=== PATIENT | male | born 1975 | race Caucasian/White ===

== ENCOUNTER 2020-10-27 15:40 | Emergency (ER) | payer SELFPAY ==
--- NOTE | 2020-10-27 16:30 | EDM.PDOC ---
ED HPI GENERAL MEDICAL PROBLEM - General Chief Complaint: Upper Extremity Injury/Pain Stated Complaint: BACK/RIGHT SHOULDER PAIN Time Seen by Provider: 10/27/20 16:24 Source of Information: Reports: Patient History Limitations: Reports: No Limitations - History of Present Illness INITIAL COMMENTS - FREE TEXT/NARRATIVE: 45-year-old male presents to the ED with severe right-sided cervical neck pain radiating all the way down his right upper extremity to his second and third fingers i.e. in the C6 dermatome. He states he awoke with this type of pain 2 days ago and it is progressively worsened. He states pain was rating down his arm since that time and is constant. He feels like his elbow is on fire. He has not developed any signs of shingles at this time. States he had shingles once in the past on his head. Patient states he had a fall from the back of a semitrailer about 12 days ago and banged up his right hip and lower back which took a few days to get better. He felt he charlene his neck at that time but never had any significant pain until the last 2 days. Even driving the car and bumps in the highway will exacerbate the pain in his right upper extremity. Motrin and Tylenol have made no dent in the severity of the pain which he rates 10 out of 10. Onset: Sudden Onset Date: 10/26/20 (Up with pain in his cervical spine on the right side rating down his right arm yesterday morning) Duration: Hour(s):, Constant, Getting Worse Location: Reports: Neck, Upper Extremity, Right (The right upper extremity pain with a burning paresthesia pain rating from his neck all the way down to his third and second fingers tips.) Quality: Reports: Ache, Burning Severity: Severe Improves with: Reports: None (10 out of 10) Worsens with: Reports: None Context: Denies: Activity, Exercise, Lifting, Sick Contact, Trauma, Other Associated Symptoms: Denies: No Other Symptoms, Confusion, Cough, cough w sputum, Diaphoresis, Fever/Chills, Headaches, Loss of Appetite, Malaise, Nausea/Vomiting, Rash (No evidence of shingles.), Shortness of Breath, Syncope 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, NSAIDS Right Shoulder Pain Score (Numeric/FACES): 10 - Related Data Allergies Allergy/AdvReac Type Severity Reaction Status Date / Time bee venom protein (honey bee) Allergy Anaphylactic Verified 10/27/20 16:06 Shock Home Meds: Home Meds C/Sourcherry/Celery/Grape Seed [Tart Low] 1 each PO DAILY 10/27/20 [History] Cider Vinegar [Apple Cider Vinegar] 1 tab PO DAILY 10/27/20 [History] Diclofenac Sodium [Voltaren] 75 mg PO BIDMEALS #16 tab.cr 10/27/20 [Rx] Gabapentin [Neurontin] 600 mg PO BEDTIME #14 tab 10/27/20 [Rx] Liberty Root [Liberty] 1 tab PO DAILY 10/27/20 [History] oxyCODONE HCl/Acetaminophen [Percocet 5-325 mg Tablet] 1 - 2 each PO Q4H PRN #30 tablet 10/27/20 [Rx] predniSONE [Prednisone] 20 mg PO ASDIRECTED #19 tablet 10/27/20 [Rx] Past Medical History HEENT History: Reports: Hard of Hearing Musculoskeletal History: Reports: Gout Other Musculoskeletal History: broken back in 1996 with no surgery Neurological History: Reports: Concussion Endocrine/Metabolic History: Reports: Obesity/BMI 30+ Other Oncologic History: "skin cancer on right cheek" removed in 2019 - Infectious Disease History Infectious Disease History: Reports: Shingles - Past Surgical History GI Surgical History: Reports: Hernia, Inguinal, Hernia Repair/Other Other Musculoskeletal Surgeries/Procedures:: right hand surgery Social & Family History - Tobacco Use Tobacco Use Status *Q: Current Every Day Tobacco User Years of Tobacco use: 30 Packs/Tins Daily: 1 - Caffeine Use Caffeine Use: Reports: None - Recreational Drug Use Recreational Drug Use: No - Living Situation & Occupation Living situation: Reports: Occupation: Employed Review of Systems - Review of Systems Review Of Systems: See Below Constitutional: Reports: No Symptoms Eyes: Reports: No Symptoms Ears: Reports: No Symptoms Nose: Reports: No Symptoms Mouth/Throat: Reports: No Symptoms Respiratory: Reports: No Symptoms Cardiovascular: Reports: No Symptoms GI/Abdominal: Reports: No Symptoms Genitourinary: Reports: No Symptoms Musculoskeletal: Reports: Back Pain (Gets back in 1996 and healed without any surgery.) Skin: Reports: No Symptoms Neurological: Reports: Paresthesia (Area right upper arm rating down to the second and third fingers in the C6 dermatome from cervical spine.) Psychiatric: Reports: No Symptoms ED EXAM, GENERAL - Physical Exam Exam: See Below Exam Limited By: No Limitations General Appearance: Alert, WD/WN, Mild Distress, Other (He is discomfort. Temperature is 36.8. Heart rate 65 and sinus. Respiratory 16. BP 172/91. Pulse ox 98% room air.) Eye Exam: Bilateral Eye: Normal Inspection, PERRL Throat/Mouth: Normal Inspection, Normal Lips, Normal Teeth, Normal Oropharynx Head: Atraumatic, Normocephalic Neck: Normal Inspection, Limited Range of Motion (Observation of pain right side of neck with full flexion and extension. Exacerbation of pain with right lateral flexion and lateral right lateral rotation with pain rating into the right shoulder. Axial traction increases the pain in the right side of his neck and radiates to his shoulder.). No: Supple, Lymphadenopathy (L), Lymphadenopathy (R) Respiratory/Chest: No Respiratory Distress, Lungs Clear, Normal Breath Sounds, No Accessory Muscle Use Cardiovascular: Normal Peripheral Pulses, Regular Rate, Rhythm, No Edema, No Gallop, No Murmur, No Rub Peripheral Pulses: 3+: Carotid (L), Carotid (R), Brachial (R), Radial (L) Extremities: Normal Inspection, Normal Range of Motion, Non-Tender, No Pedal Edema Neurological: Alert, Oriented, CN II-XII Intact, Normal Cognition, Other (No motor power or tone difference between upper extremities.) Psychiatric: Normal Affect, Normal Mood Skin Exam: Warm, Dry, Intact, Normal Color, No Rash Course - Vital Signs Last Recorded V/S: Last Vital Signs Temp 36.8 C 10/27/20 17:48 Pulse 59 L 10/27/20 17:48 Resp 18 10/27/20 17:48 BP 158/96 H 10/27/20 17:48 Pulse Ox 99 10/27/20 17:48 - Radiology Interpretation Free Text/Narrative:: 45-year-old male presents to the ED with a 2-day history of severe pain right side of his neck radiating all the way down his right arm to his second and third fingers a C6 dermatome. He fell off the back of a semitrailer truck about 3 weeks ago and injured his right hip and lower back and did charlene his neck at that time but had no persistent pain. He woke up with his severe pain yesterday morning. No relief with Tylenol and Motrin. Pain is constant severe and burning i.e. paresthesias and neurogenic pain. There is no evidence of shingles at this time the patient was advised to keep an eye out for rash in the next 3 to 4 days. Plan we will proceed with CT cervical spine at this time as clinically he has a herniated disc with C6 nerve root entrapment/irritation. - Re-Assessments/Exams Free Text/Narrative Re-Assessment/Exam: 10/27/20 17:12 CT cervical spine has been completed without contrast. Degenerative changes noted between the dens and the anterior arch of C1. Mild disc space narrowing is noted at the C3-4 level. Moderate disc space narrowing is noted at the C4-5 level. Mild disc space narrowing is noted at the C5-6 level. Fairly severe disc space narrowing is noted at the C6-7 level. Mild disc space narrowing is noted at the C7-T1 level. Posterior osteophytes are noted which are most prominent at the C6-7 level. Anterior osteophytes are noted which are most prominent at the C6-7 level as well. Mild scattered degenerative apophyseal changes noted. Minimal degenerative changes seen within the uncovertebral joints which is most prominent at the C6-7 level. Mild bilateral neuroforaminal stenosis is noted at the C6-7 level. Other neural foramina are patent. Slightly abnormal cervical curvature is seen which is most likely degenerative in etiology. Visualized lung apices are clear. No fracture or subluxation is identified. 10/27/20 17:21: I did discuss the findings of his CT with himself and his . I have advised them to watch for any development of herpes zoster lesions on his arm or neck and return immediately to medical care if this occurs. He does have degenerative changes at the C6-7 level and clinically has C6 nerve root irritation on the right side. Patient will be placed on gabapentin 600 mg once daily at bedtime about an hour before planned bedtime. Percocet tabs 5/325 mg strength likely 2 tablets every 4-6 hours as needed primarily to help sleep at night. Voltaren 75 mg twice daily for the next 8 days to reduce pain and inflammation. Prednisone 20 mg twice daily with breakfast and supper for 6 days then once in the morning only for another 6 days to relieve pain and inflammation. Advised Pepcid 20 mg by mouth once daily for GI protection when on above medications. If he is not better in 10 days time he will need MRI of his cervical spine and a potential course of physiotherapy. Departure - Departure Time of Disposition: 17:19 Disposition: Home, Self-Care 01 Condition: Fair Clinical Impression: Neuralgia, Radiculopathy affecting upper extremity, Cervical neck pain with evidence of disc disease - Discharge Information *PRESCRIPTION DRUG MONITORING PROGRAM REVIEWED*: Not Applicable *COPY OF PRESCRIPTION DRUG MONITORING REPORT IN PATIENT DEAN: Not Applicable Prescriptions: Gabapentin [Neurontin] 600 mg PO BEDTIME #14 tab oxyCODONE HCl/Acetaminophen [Percocet 5-325 mg Tablet] 1 - 2 each PO Q4H PRN #30 tablet PRN Reason: pain relief. predniSONE [Prednisone] 20 mg PO ASDIRECTED #19 tablet Diclofenac Sodium [Voltaren] 75 mg PO BIDMEALS #16 tab.cr Instructions: Radicular Pain Referrals: Justine Beauchamp SKIN WASHER [Primary Care Provider] - Forms: ED Department Discharge Additional Instructions: Evaluation in the emergency room today in regards to severe pain radiating from right side of neck down your arm to the fingers particularly noted in the third and second fingers this is called the C6 nerve root dermatome. CT scan of the cervical spine reveals degenerative changes throughout the cervical spine but most of them are identified to be most prominent at the C6-7 level. There are 7 bones total in your neck . There is narrowing of the opening which they called the neural foraminal stenosis. Most prominent at the C6-7 level on both sides of your neck and I cannot state that one side looks worse than the other. Certainly no broken bones and no terrible degenerative arthritic changes or advanced disc degenerative change that would be worrisome for needing surgery. Treatment is to be Percocet tablets 5/325 mg strength ideally 2 tablets every 4- 6 hours necessary for pain relief while not operating a vehicle motor vehicle or machinery. Gabapentin 600 mg to be taken once daily at bedtime about an hour prior to planning to go to bed. This will be used for the next 14 days. Prednisone 20 mg strength to be taken with breakfast and supper for 6 days and then 1 tab in the morning only for another 6 days. First tablet could be taken with supper tonight. Voltaren 75 mg to be taken with breakfast and supper as well for 8 days and one could be taken with supper tonight. These are all designed to reduce inflammation and pain medication is to be taken as needed for pain relief and to get some sleep. If not markedly improved in 10 days time you should be reviewed. May be levine to use Pepcid 20 mg tablet once daily at bedtime to protect stomach lining while you are on the above pain medications. Sepsis Event Note (ED) - Evaluation Sepsis Screening Result: No Definite Risk - Focused Exam Vital Signs: Vital Signs Temp Pulse Resp BP Pulse Ox 10/27/20 17:48 36.8 C 59 L 18 158/96 H 99 10/27/20 15:59 36.8 C 65 16 172/91 H 98
--- NOTE | 2020-10-27 17:04 | CT ---
CT cervical spine Technique: Multiple axial sections were obtained from above C1 inferiorly to the top of T2. Reconstructed coronal and sagittal images were obtained. Comparison: No prior cervical spine imaging is available. Findings: Degenerative change is noted between the dens and anterior arch of C1. Mild disc space narrowing is noted at C3-4. Moderate disc space narrowing is noted at C4-5. Mild disc space narrowing is noted at C5-6. Fairly severe disc space narrowing is noted at C6-7. Mild disc space narrowing is noted at C7-T1. Posterior osteophytes are noted which are most prominent C6-7. Anterior osteophytes are noted which are most prominent at C6-7. Mild scattered degenerative apophyseal change is noted. Minimal degenerative change is seen within the uncovertebral joints which is most prominent at C6-7. Mild bilateral neural foraminal stenosis is noted at C6-7. Other neural foramina are patent. Slightly abnormal cervical curvature is seen which is most likely degenerative in etiology. Visualized lung apices are clear. No acute fracture or abnormal subluxation is seen. Impression: 1. Degenerative change as noted above. 2. No acute osseous abnormality is appreciated on CT study of the cervical spine. Diagnostic code #2
== END 2020-10-27 17:50 | disposition home or self-care (01) ==
LOC: JD.ED 15:40
DX: M50.123 Cervical disc disorder at C6-C7 level with radiculopathy (principal); E66.9 Obesity, unspecified; Z91.030 Bee allergy status; Z72.0 Tobacco use; Z68.36 Body mass index [BMI] 36.0-36.9, adult
CPT/HCPCS: 72125; 72125-26; 99283-25; 99284

== ENCOUNTER 2021-01-11 09:12 | Emergency (ER) | payer OTHER ==
--- NOTE | 2021-01-11 09:48 | EDM.PDOC ---
ED HPI GENERAL MEDICAL PROBLEM - General Chief Complaint: Respiratory Problem Stated Complaint: COVID+ 10+ DAYS\\ SOB Time Seen by Provider: 01/11/21 09:38 Source of Information: Reports: Patient, RN Notes Reviewed - History of Present Illness INITIAL COMMENTS - FREE TEXT/NARRATIVE: 45 yr old male developed sx of covid about 2 wks ago. Was supposed to come out of quarantine 4 days ago but has become more ill with worsening cough and shortness of breath the past 4 days. Has still had intermitent fever, continued body aches, Camacho, no appetite. Unvaccinated. Thinks he may have also had covid about 1 1/2 yrs ago but that was not confirmed. Sats have been running about 89 to 91 at home. Treatments ANALYTICAL LAB TECHNICIAN: Reports: Acetaminophen, NSAIDS - Related Data Allergies Allergy/AdvReac Type Severity Reaction Status Date / Time bee venom protein (honey bee) Allergy Anaphylactic Verified 01/11/21 10:14 Shock Home Meds: Home Meds C/Sourcherry/Celery/Grape Seed [Tart Low] 1 each PO DAILY 10/27/20 [History] Cider Vinegar [Apple Cider Vinegar] 1 tab PO DAILY 10/27/20 [History] Diclofenac Sodium [Voltaren] 75 mg PO BIDMEALS #16 tab.cr 10/27/20 [Rx] Gabapentin [Neurontin] 600 mg PO BEDTIME #14 tab 10/27/20 [Rx] Liberty Root [Liberty] 1 tab PO DAILY 10/27/20 [History] oxyCODONE HCl/Acetaminophen [Percocet 5-325 mg Tablet] 1 - 2 each PO Q4H PRN #30 tablet 10/27/20 [Rx] predniSONE [Prednisone] 20 mg PO ASDIRECTED #19 tablet 10/27/20 [Rx] Azithromycin 500 mg PO DAILY #5 tablet 01/11/21 [Rx] Past Medical History HEENT History: Reports: Hard of Hearing Musculoskeletal History: Reports: Gout Other Musculoskeletal History: broken back in 1996 with no surgery Neurological History: Reports: Concussion Endocrine/Metabolic History: Reports: Obesity/BMI 30+ Other Oncologic History: "skin cancer on right cheek" removed in 2019 - Infectious Disease History Infectious Disease History: Reports: Shingles - Past Surgical History GI Surgical History: Reports: Hernia, Inguinal, Hernia Repair/Other Other Musculoskeletal Surgeries/Procedures:: right hand surgery Social & Family History - Caffeine Use Caffeine Use: Reports: None - Living Situation & Occupation Living situation: Reports: Occupation: Employed ED ROS GENERAL - Review of Systems Review Of Systems: See Below Constitutional: Reports: Fever, Chills. Denies: Diaphoresis HEENT: Reports: Rhinitis. Denies: Throat Pain Respiratory: Reports: Shortness of Breath, Cough Cardiovascular: Reports: Chest Pain (with deep breathing), Dyspnea on Exertion Endocrine: Reports: Fatigue GI/Abdominal: Reports: Decreased Appetite. Denies: Vomiting Musculoskeletal: Reports: Other (generalized achiness) Neurological: Reports: Dizziness, Headache ED EXAM, GENERAL - Physical Exam Exam: See Below General Appearance: Alert, Mild Distress Head: Atraumatic Neck: Supple, Other (No JVD) Respiratory/Chest: Lungs Clear, No Accessory Muscle Use, Rhonchi (mild bilat mid and lower lung) Cardiovascular: Regular Rate, Rhythm Extremities: No: Pedal Edema, Leg Pain Neurological: Alert, Oriented, No Motor/Sensory Deficits Skin Exam: Warm, Dry, Normal Color Course - Orders/Labs/Meds Orders: Active Orders 24 hr Category Date Time Status Peripheral IV Care [RC] . DIRECTED Care 01/11/21 10:04 Active Sodium Chloride 0.9% [Normal Saline] 1,000 ml Med 01/11/21 10:30 Active IV ONETIME Sodium Chloride 0.9% [Normal Saline] 100 ml Med 01/11/21 11:45 Active IV ASDIRECTED Sodium Chloride 0.9% [Saline Flush] Med 01/11/21 10:03 Active 10 ml FLUSH ASDIRECTED PRN Sodium Chloride 0.9% [Saline Flush] Med 01/11/21 11:31 Active 10 ml FLUSH ONETIME PRN Peripheral IV Insertion Adult [OM.PC] Stat Oth 01/11/21 10:03 Ordered Medication Orders Sodium Chloride (Normal Saline) 1,000 mls @ 999 mls/hr IV ONETIME [facility] Last Admin: 01/11/21 10:42 Dose: 999 mls/hr Documented by: TADEO Sodium Chloride (Normal Saline) 100 mls @ 75 mls/hr IV ASDIRECTED KADIE Last Admin: 01/11/21 12:00 Dose: 75 mls/hr Documented by: CHERELLE Sodium Chloride (Sodium Chloride 0.9% 10 Ml Syringe) 10 ml FLUSH ASDIRECTED PRN PRN Reason: Keep Vein Open Last Admin: 01/11/21 10:42 Dose: 10 ml Documented by: TADEO Sodium Chloride (Sodium Chloride 0.9% 10 Ml Syringe) 10 ml FLUSH ONETIME PRN PRN Reason: IV FLUSH Last Admin: 01/11/21 12:00 Dose: 10 ml Documented by: CHERELLE Labs: Laboratory Tests 01/11/21 01/11/21 01/11/21 Range/Units 10:37 10:37 10:37 WBC 6.23 (4.23-9.07) K/mm3 RBC 4.83 (4.63-6.08) M/mm3 Hgb 13.8 (13.7-17.5) gm/dl Hct 41.8 (40.1-51.0) % MCV 86.5 (79.0-92.2) fl MCH 28.6 (25.7-32.2) pg MCHC 33.0 (32.2-35.5) g/dl RDW Std Deviation 43.0 (35.1-43.9) fL Plt Count 153 L (163-337) K/mm3 MPV 9.2 L (9.4-12.3) fl Neut % (Auto) 82.4 H (34.0-67.9) % Lymph % (Auto) 9.6 L (21.8-53.1) % Glascock % (Auto) 7.5 (5.3-12.2) % Eos % (Auto) 0 L (0.8-7.0) Baso % (Auto) 0.2 (0.1-1.2) % Neut # (Auto) 5.13 (1.78-5.38) K/mm3 Lymph # (Auto) 0.60 L (1.32-3.57) K/mm3 Glascock # (Auto) 0.47 (0.30-0.82) K/mm3 Eos # (Auto) 0.00 L (0.04-0.54) K/mm3 Baso # (Auto) 0.01 (0.01-0.08) K/mm3 D-Dimer, Quantitative 0.80 H (0.19-0.50) mg/L Puncture Site ABG pH (7.35-7.45) ABG pCO2 (35.0-45.0) mmHg ABG pO2 (80.0-100.0) mmHg ABG HCO3 (22.0-26.0) meq/L ABG O2 Saturation (96.0-97.0) % ABG Base Excess (-2-2.0) Yaya Test O2 Delivery Device Sodium 137 (136-145) mEq/L Potassium 3.8 (3.5-5.1) mEq/L Chloride 102 (98-107) mEq/L Carbon Dioxide 28 (21-32) mEq/L Anion Gap 10.8 (5-15) BUN 11 (7-18) mg/dL Creatinine 1.0 (0.7-1.3) mg/dL Est Cr Clr Drug Dosing 106.18 mL/min Estimated GFR (MDRD) > 60 (>60) mL/min BUN/Creatinine Ratio 11.0 L (14-18) Glucose 117 H (70-99) mg/dL Calcium 8.1 L (8.5-10.1) mg/dL Total Bilirubin 0.5 (0.2-1.0) mg/dL AST 54 H (15-37) U/L ALT 77 H (16-63) U/L Alkaline Phosphatase 52 (46-116) U/L C-Reactive Protein 22.3 H* (<1.0) mg/dL Total Protein 7.2 (6.4-8.2) g/dl Albumin 2.9 L (3.4-5.0) g/dl Globulin 4.3 gm/dL Albumin/Globulin Ratio 0.7 L (1-2) 01/11/21 Range/Units 11:54 WBC (4.23-9.07) K/mm3 RBC (4.63-6.08) M/mm3 Hgb (13.7-17.5) gm/dl Hct (40.1-51.0) % MCV (79.0-92.2) fl MCH (25.7-32.2) pg MCHC (32.2-35.5) g/dl RDW Std Deviation (35.1-43.9) fL Plt Count (163-337) K/mm3 MPV (9.4-12.3) fl Neut % (Auto) (34.0-67.9) % Lymph % (Auto) (21.8-53.1) % Glascock % (Auto) (5.3-12.2) % Eos % (Auto) (0.8-7.0) Baso % (Auto) (0.1-1.2) % Neut # (Auto) (1.78-5.38) K/mm3 Lymph # (Auto) (1.32-3.57) K/mm3 Glascock # (Auto) (0.30-0.82) K/mm3 Eos # (Auto) (0.04-0.54) K/mm3 Baso # (Auto) (0.01-0.08) K/mm3 D-Dimer, Quantitative (0.19-0.50) mg/L Puncture Site Rt radial ABG pH 7.40 (7.35-7.45) ABG pCO2 37.4 (35.0-45.0) mmHg ABG pO2 60.0 L (80.0-100.0) mmHg ABG HCO3 22.8 (22.0-26.0) meq/L ABG O2 Saturation 89.5 L (96.0-97.0) % ABG Base Excess -1.0 (-2-2.0) Yaya Test Positive O2 Delivery Device Room air Sodium (136-145) mEq/L Potassium (3.5-5.1) mEq/L Chloride (98-107) mEq/L Carbon Dioxide (21-32) mEq/L Anion Gap (5-15) BUN (7-18) mg/dL Creatinine (0.7-1.3) mg/dL Est Cr Clr Drug Dosing mL/min Estimated GFR (MDRD) (>60) mL/min BUN/Creatinine Ratio (14-18) Glucose (70-99) mg/dL Calcium (8.5-10.1) mg/dL Total Bilirubin (0.2-1.0) mg/dL AST (15-37) U/L ALT (16-63) U/L Alkaline Phosphatase (46-116) U/L C-Reactive Protein (<1.0) mg/dL Total Protein (6.4-8.2) g/dl Albumin (3.4-5.0) g/dl Globulin gm/dL Albumin/Globulin Ratio (1-2) Meds: Medications Generic Name Dose Route Start Last Admin Trade Name Freq PRN Reason Stop Dose Admin Sodium Chloride 1,000 mls @ 999 mls/hr 01/11/21 10:30 01/11/21 10:42 Normal Saline IV 999 mls/hr ONETIME KADIE Administration Sodium Chloride 100 mls @ 75 mls/hr 01/11/21 11:45 01/11/21 12:00 Normal Saline IV 75 mls/hr ASDIRECTED KADIE Administration Sodium Chloride 10 ml 01/11/21 10:03 01/11/21 10:42 Sodium Chloride 0.9% 10 Ml Syringe FLUSH 10 ml ASDIRECTED PRN Administration Keep Vein Open Sodium Chloride 10 ml 01/11/21 11:31 01/11/21 12:00 Sodium Chloride 0.9% 10 Ml Syringe FLUSH 10 ml ONETIME PRN Administration IV FLUSH Discontinued Medications Generic Name Dose Route Start Last Admin Trade Name Vivienne PRN Reason Stop Dose Admin Ibuprofen 800 mg 01/11/21 13:14 Ibuprofen 800 Mg Tab PO 01/11/21 13:15 ONETIME ONE Iopamidol 100 ml 01/11/21 11:31 01/11/21 12:00 Iopamidol 755 Mg/Ml 100 Ml Bottle IVPUSH 01/11/21 11:32 100 ml ONETIME ONE Administration - Re-Assessments/Exams Free Text/Narrative Re-Assessment/Exam: 01/11/21 12:11 CXR does show lateral infiltrates compatable with covid pneumonia. D dimer elevated at 0.8, have ordered CT pul angiogram, awaiting report. )2 sats have been in the 90 to 91 range, have ordered ABG's room air. 01/11/21 13:15. ABG's on room air borderline OK. p02. only 60. However when I just checked on him sats 93 to 95 % room air. He does not currently feel short of breath at rest. CT Pul Angio neg for PE. He wants to go home. He is at about day 14 o 15, far past the window for antibody rx. Discharge instr. as documented. Departure - Departure Time of Disposition: 13:18 Disposition: Home, Self-Care 01 Condition: Fair Clinical Impression: Pneumonia due to COVID-19 virus - Discharge Information Referrals: PCP,None [Ordering Only Provider] - Forms: ED Department Discharge Additional Instructions: Your chest X rays today does show evidence of viral covid pneumonia as discussed. Noahomax 500 mg daily for 5 days. Prescription has been sent to your [place] pharmacy. Rest. Change body position frequently including lying on your abdomen several times daily. This helps open up the small air pockets through out your lungs. Return to ED for severe difficulty breathing or other levine as needed. Sepsis Event Note (ED) - Evaluation Sepsis Screening Result: No Definite Risk - My Orders Last 24 Hours: My Active Orders 01/11/21 10:03 Sodium Chloride 0.9% [Saline Flush] 10 ml FLUSH ASDIRECTED PRN Peripheral IV Insertion Adult [OM.PC] Stat 01/11/21 10:04 Peripheral IV Care [RC] . DIRECTED 01/11/21 10:30 Sodium Chloride 0.9% [Normal Saline] 1,000 ml IV ONETIME 01/11/21 11:31 Sodium Chloride 0.9% [Saline Flush] 10 ml FLUSH ONETIME PRN 01/11/21 11:45 Sodium Chloride 0.9% [Normal Saline] 100 ml IV ASDIRECTED - Assessment/Plan Last 24 Hours: My Active Orders 01/11/21 10:03 Sodium Chloride 0.9% [Saline Flush] 10 ml FLUSH ASDIRECTED PRN Peripheral IV Insertion Adult [OM.PC] Stat 01/11/21 10:04 Peripheral IV Care [RC] . DIRECTED 01/11/21 10:30 Sodium Chloride 0.9% [Normal Saline] 1,000 ml IV ONETIME 01/11/21 11:31 Sodium Chloride 0.9% [Saline Flush] 10 ml FLUSH ONETIME PRN 01/11/21 11:45 Sodium Chloride 0.9% [Normal Saline] 100 ml IV ASDIRECTED
[2021-01-11] MEDS ORDERED: Sodium Chloride 0.9% 10 ML Syringe FLUSH PRN ×2 (10:03→11:31)
[2021-01-11] MEDS ORDERED: Sodium Chloride 0.9% 1,000 ML IV SCH (10:30)
--- NOTE | 2021-01-11 11:21 | CR ---
Chest: Portable view of the chest was obtained. Comparison: No prior chest imaging is available. Patchy areas of increased density are seen on both sides of the chest. Heart size and mediastinum are normal. Bony structures show nothing acute. Impression: 1. Patchy areas of increased density on both sides of the chest. Findings, radiographically, have the appearance of COVID pneumonia. Please correlate. Diagnostic code #3
[2021-01-11] MEDS ORDERED: Iopamidol 755 Mg/ML 100 ML Bottle IVPUSH ONE (11:31)
[2021-01-11] MEDS ORDERED: Sodium Chloride 0.9% 100 ML IV SCH (11:45)
--- NOTE | 2021-01-11 12:17 | CT ---
CT chest Technique: Multiple axial sections through the chest were obtained. Intravenous contrast was utilized. Study has been performed as a pulmonary angiogram protocol. Findings: Pulmonary arteries are fairly well opacified. No filling defects are seen to indicate pulmonary embolism. Thoracic aorta shows no aneurysm. Mediastinum shows no adenopathy. No axillary adenopathy is seen. No pericardial thickening is seen. The visualized portion of the upper abdominal structures show no discrete abnormality. Lung window settings were reviewed which shows scattered parenchymal change throughout both sides of the chest. Bone window settings were reviewed which show no acute osseous abnormality. Impression: 1. No findings of pulmonary embolism. 2. Patchy parenchymal densities within both sides of the chest having the appearance of COVID pneumonia. Please correlate. 3. No additional abnormality is appreciated on CT study of the chest. Diagnostic code #3
[2021-01-11] MEDS ORDERED: Ibuprofen 800 MG Tab PO ONE (13:14)
== END 2021-01-11 13:45 | disposition home or self-care (01) ==
LOC: JD.ED 09:12
DX: U07.1 COVID-19 (principal); J12.82 Pneumonia due to coronavirus disease 2019; R79.1 Abnormal coagulation profile; M10.9 Gout, unspecified; E66.9 Obesity, unspecified; Z68.32 Body mass index [BMI] 32.0-32.9, adult; Z91.030 Bee allergy status; Z79.899 Other long term (current) drug therapy
CPT/HCPCS: 36415; 36600; 71045; 71275; 80053; 82803; 85025; 85379; 86140; 99285; A9270; J7030; Q9967